=== PATIENT | female | born 1985 | race Caucasian/White ===

== ENCOUNTER 2018-10-28 20:08 | Emergency (ER) | payer SELFPAY ==
[2018-10-28] MEDS ORDERED: Ondansetron ODT TAB* 4 MG PO ONE (22:18)
--- NOTE | 2018-10-28 22:25 | ED ---
Head Injury - HPI Summary HPI Summary: Patient complains of nausea status post hitting her head on the upper door frame while walking up stairs at 4 PM today.. Denies LOC, vomiting, vision change, AMS, amnesia, neck pain. Patient has been ambulatory. Medical history is none. - History Of Current Complaint Chief Complaint: EDHeadInjury Stated Complaint: POSS HEAD INJURY PER MOM Time Seen by Provider: 10/28/18 22:09 Hx Obtained From: Patient, Family/[employer] Mechanism Of Injury: Blunt Trauma Onset/Duration: Started Hours Ago Onset of Pain: Immediate Severity Currently: Moderate Severity Initially: Mild Pain Intensity: 3 Pain Scale Used: 0-10 Numeric Location of Head Injury: Frontal Character: Throbbing Alleviating Factor(s): Rest Associated Signs And Symptoms: Negative - Allergies/Home Medications Allergies/Adverse Reactions: Allergies Allergy/AdvReac Type Severity Reaction Status Date / Time No Known Allergies Allergy Verified 10/28/18 20:10 PMH/Surg Hx/FS Hx/Imm Hx Endocrine/Hematology History: Denies: Hx Anticoagulant Therapy Cardiovascular History: Denies: Hx Pacemaker/ICD History: Denies: Hx Dialysis Sensory History: Denies: Hx Eye Prosthesis Opthamlomology History: Denies: Hx Legally Blind EENT History: Denies: Hx Deafness Neurological History: Denies: Hx Dementia - Immunization History Immunizations Up to Date: Yes Infectious Disease History: No Infectious Disease History: Denies: Traveled Outside the [place] in Last 30 Days - Family History Known Family History: Positive: Non-Contributory - Social History Alcohol Use: Weekly Substance Use Type: Reports: None Smoking Status (MU): Never Smoked Tobacco Review of Systems Constitutional: Negative Eyes: Negative ENT: Negative Cardiovascular: Negative Respiratory: Negative Positive: Nausea Genitourinary: Negative Musculoskeletal: Negative Skin: Negative Positive: Headache Psychological: Normal All Other Systems Reviewed And Are Negative: Yes Physical Exam - Summary Physical Exam Summary: Neuro exam normal. No hematoma noted to top of head were patient hip. No pain with palpation of neck. Full range of motion of neck and jaw. No oral trauma noted. No trauma to face noted. Triage Information Reviewed: Yes Vital Signs On Initial Exam: Initial Vitals Temp Pulse Resp BP Pulse Ox 100.3 F 77 15 135/82 100 10/28/18 20:08 10/28/18 20:08 10/28/18 20:08 10/28/18 20:08 10/28/18 20:08 Vital Signs Reviewed: Yes Appearance: Positive: Well-Appearing Skin: Positive: Warm Head/Face: Positive: Normal Head/Face Inspection Eyes: Positive: Normal Dental: Negative: Dental Fracture @, Bleeding Neck: Positive: Supple Respiratory/Lung Sounds: Positive: Clear to Auscultation Cardiovascular: Positive: Normal Abdomen Description: Positive: Nontender Musculoskeletal: Positive: Normal Neurological: Positive: Normal Psychiatric: Positive: Normal AVPU Assessment: Alert - Iman Coma Scale Best Eye Response: 4 - Spontaneous Best Motor Response: 6 - Obeys Commands Best Verbal Response: 5 - Oriented Coma Scale Total: 15 Diagnostics - Vital Signs Vital Signs Temp Pulse Resp BP Pulse Ox 10/28/18 22:06 66 122/83 100 10/28/18 22:05 69 100 10/28/18 20:08 100.3 F 77 15 135/82 100 - Laboratory Lab Statement: Any lab studies that have been ordered have been reviewed, and results considered in the medical decision making process. Head Injury Course/Dx Course Of Treatment: Patient complains of nausea status post hitting her head on the upper door frame while walking up stairs at 4 PM today.. Denies LOC, vomiting, vision change, AMS, amnesia, neck pain. Patient has been ambulatory. Medical history is none. Vital signs within normal limits. Patient does not meet criteria for head CT. Likely clinical diagnosis of concussion. - Diagnoses Provider Diagnoses: Head injury, Concussion Discharge - Sign-Out/Discharge Documenting (check all that apply): Patient Departure Patient Received Moderate/Deep Sedation with Procedure: No - Discharge Plan Condition: Stable Disposition: HOME Prescriptions: Ondansetron ODT TAB* [Zofran 4 MG Odt TAB*] 4 mg PO Q8H PRN 4 Days #14 tab.odt PRN Reason: Nausea Patient Education Materials: Concussion (ED) Forms: *Gen. Provider Communication Referrals: No Primary Care Phys,NOPCP [Primary Care Provider] - Additional Instructions: Symptoms of concussion including nausea, headache, difficulty focusing may come and go but should improve over the course of the next 2 weeks. Avoid any contact sports where there is risk of repeat head injury. Do not engage in contact sports until cleared by primary care. Take ibuprofen or Tylenol for headache. Take Zofran for nausea. Symptoms may be triggered by use of fall, computers, televisions or mental strain. Return to the ED for any worsening symptoms. - Billing Disposition and Condition Condition: STABLE Disposition: Home - Attestation Statements Provider Attestation: the patient was seen by the midlevel provider, it was determined by them that it was not necessary for me to see the patient, I was available for consult during the patient's visit in the ED. I did not establish and patient-physician relationship. The chart however has been reviewed and I am signing in an administrative capacity.
[2018-10-28] MEDS ORDERED: Acetaminophen TAB* 325 MG PO ONE (22:30)
[2018-10-28 22:42] VITALS: BP 133/78
== END 2018-10-28 22:42 | disposition home or self-care (01) ==
LOC: ED 20:08
DX: S06.0X0A Concussion without loss of consciousness, initial encounter (principal); W22.09XA Striking against other stationary object, initial encounter; Y92.9 Unspecified place or not applicable
CPT/HCPCS: 99282; A9270-GY